=== PATIENT | male | born 1980 | race Hispanic/Latino ===

== ENCOUNTER 2018-03-20 01:55 | Emergency (ER) | payer SELFPAY ==
[2018-03-20] MEDS ORDERED: ACETAMINOPHEN-CODEINE ELIXIR 5 ML UDCUP ONE (02:01)
== END 2018-03-20 02:37 | disposition home or self-care (01) ==
LOC: EDH 01:55
DX: S60.211A Contusion of right wrist, initial encounter (principal); S40.211A Abrasion of right shoulder, initial encounter; I10 Essential (primary) hypertension; S00.81XA Abrasion of other part of head, initial encounter; Y08.89XA Assault by other specified means, initial encounter; Y93.89 Activity, other specified; Y92.89 Other specified places as the place of occurrence of the external cause; Y99.8 Other external cause status
CPT/HCPCS: 73110